=== PATIENT | male | born 1995 | race Caucasian/White ===

== ENCOUNTER 2020-01-26 09:26 | Emergency (ER) | payer BC, OTHER ==
[~2020-01-26] VITALS: Ht 172 cm; Wt 181.0 kg
[2020-01-26] MEDS ORDERED: ONDANSETRON 4 MG/2 ML (SDV) Z0FRAN ONE (09:43)
[2020-01-26] MEDS ORDERED: KETOROLAC 30 MG/ML VIAL ONE (09:43)
[2020-01-26] MEDS ORDERED: LACTATED RINGERS 1,000 ML IV ONE ×2 (09:43→09:54)
[2020-01-26] MEDS ORDERED: KETOROLAC 30 MG/ML VIAL IVP STA (09:54)
[2020-01-26] MEDS ORDERED: ONDANSETRON 4 MG/2 ML (SDV) Z0FRAN IVP ONE (10:00)
[2020-01-26 10:05] LABS: BASOPHILS % (AUTO) 1 % (0-10); EOSINOPHILS # (AUTO) 0.2 10^3/uL (0.0-0.3); EOSINOPHILS % (AUTO) 4 % (0-10); HEMATOCRIT 47 % (40-54); LYMPHOCYTES # (AUTO) 1.9 X 10^3 (1.0-4.0); LYMPHOCYTES % (AUTO) 32 % (12-44); MEAN CORPUSCULAR HEMOGLOBIN 27 PG (25-34); MEAN CORPUSCULAR HGB CONC 34 G/DL (32-36); MEAN CORPUSCULAR VOLUME 80 FL (80-99); MONOCYTES # (AUTO) 0.5 X 10^3 (0.0-1.0); MONOCYTES % (AUTO) 8 % (0-12); NEUTROPHILS # (AUTO) 3.4 X 10^3 (1.8-7.8); NEUTROPHILS % (AUTO) 57 % (42-75); PLATELET COUNT 224 10^3/uL (130-400); RED CELL DISTRIBUTION WIDTH 13.4 % (10.0-14.5); WHITE BLOOD COUNT 5.9 10^3/uL (4.3-11.0)
[2020-01-26 10:10] LABS: ALBUMIN 4.3 GM/DL (3.2-4.5); CHLORIDE 107 MMOL/L (98-107); POTASSIUM 4.3 MMOL/L (3.6-5.0); SODIUM 140 MMOL/L (135-145)
--- NOTE | 2020-01-26 10:11 | ED General ---
General Chief Complaint: Fever-Adult/Adol Stated Complaint: FEVER/SOA Nursing Triage Note: PATIENT ARRIVED VIA AMB TO ROOM 10 WITHOUT DIFFICULTY. COMPLAINS OF HEADACHE, BODYACHES, SOA, CHEST PAIN WITH DEEP BREATHS STARTING MODAY. PT STATES LAST NIGHT HE RAN A FEVER OF 101-102 BUT IT BROKE THIS AM. DENIES COUGH OR BEING AROUND A POSITVE COVID PT. PT HAS NOT BEEN STAYING AT HOME. Nursing Sepsis Screen: No Definite Risk Source of Information: Patient Exam Limitations: No Limitations History of Present Illness Date Seen by Provider: January 26, 2020 Time Seen by Provider: 09:46 Initial Comments Here with report of fevers, chills, body aches, nausea and diarrhea over the last few days with fever of 101 or higher last night. Has been taking ibuprofen for the discomfort. Did have travel to [place] last week and stayed over the night at a town south of there. No other sick contacts. Does admit to shortness of breath. He is worried about COVID-19. Denies cough, sore throat or runny nose. Timing/Duration: 2-3 Days Severity: Moderate Associated Systoms: No Cough; Fever/Chills, Headaches, Loss of Appetite, Malaise, Nausea/Vomiting, Shortness of Air, Weakness Allergies and Home Medications Allergies Coded Allergies: No Known Drug Allergies (Unverified , 01/26/20) Home Medications No Active Prescriptions or Reported Meds Patient Home Medication List Home Medication List Reviewed: Yes Review of Systems Review of Systems Constitutional: see HPI EENTM: see HPI Respiratory: see HPI; No cough; short of breath Cardiovascular: No chest pain, No edema, No palpitations Gastrointestinal: No abdominal pain; diarrhea, nausea Genitourinary: no symptoms reported Musculoskeletal: see HPI All Other Systems Reviewed Negative Unless Noted: Yes Past Pbsrfim-Kcbuzx-Bwwxqc Hx Past Med/Social Hx: Reviewed Nursing Past Med/Soc Hx Patient Social History Alcohol Use: Denies Use Recreational Drug Use: No Smoking Status: Never a Smoker Recent Foreign Travel: No Contact w/Someone Who Travel: No Recent Infectious Disease Expo: No Recent Hopitalizations: No Seasonal Allergies Seasonal Allergies: No Past Medical History Surgeries: No Respiratory: No Cardiac: No Neurological: No Genitourinary: No Gastrointestinal: No Musculoskeletal: No Endocrine: No HEENT: No Cancer: No Psychosocial: No Integumentary: No Family Medical History Reviewed Nursing Family Hx Physical Exam-Suspected Sepsis Physical Exam Vital Signs Vital Signs - First Documented 01/26/20 09:30 Temp 37.0 Pulse 80 Resp 16 B/P (MAP) 150/92 (111) Pulse Ox 99 O2 Delivery Room Air Capillary Refill : Less Than 3 Seconds Blood Pressure Mean: 111 Height, Weight, BMI Height: '" Weight: lbs. oz. kg; 61.00 BMI Method: General Appearance: No Apparent Distress, WD/WN HEENT: PERRL/EOMI, Pharynx Normal Neck: Non Tender, Supple Respiratory: Lungs Clear, Normal Breath Sounds Cardiovascular: Regular Rate, Rhythm, No Murmur Gastrointestinal: Non Tender, Soft Back: Normal Inspection, No CVA Tenderness, No Vertebral Tenderness Extremity: Normal Range of Motion, Non Tender Neurologic/Psychiatric: Alert, Oriented x3 Skin: normal color, warm/dry Focused Exam Lactate Level 01/26/20 09:45: Lactic Acid Level 1.45 Lactic Acid Level Laboratory Tests Test 01/26/20 09:45 Lactic Acid Level 1.45 MMOL/L (0.50-2.00) Progress/Results/Core Measures Suspected Sepsis Recent Fever Within 48 Hours: Yes Infection Criteria Present: Suspected New Infection New/Unexplained Altered Menta: No Sepsis Screen: No Definite Risk SIRS Temperature: Pulse: 80 Respiratory Rate: 16 Laboratory Tests 01/26/20 09:45: White Blood Count 5.9 Blood Pressure 150 /92 Mean: 111 01/26/20 09:45: Lactic Acid Level 1.45 Laboratory Tests 01/26/20 09:45: Creatinine 0.89, INR Comment 0.9, Platelet Count 224, Total Bilirubin 0.8 Results/Orders Lab Results Laboratory Tests Test 01/26/20 09:45 01/26/20 10:00 Range/Units White Blood Count 5.9 4.3-11.0 10^3/uL Red Blood Count 5.85 4.35-5.85 10^6/uL Hemoglobin 16.0 13.3-17.7 G/DL Hematocrit 47 40-54 % Mean Corpuscular Volume 80 80-99 FL Mean Corpuscular Hemoglobin 27 25-34 PG Mean Corpuscular Hemoglobin Concent 34 32-36 G/DL Red Cell Distribution Width 13.4 10.0-14.5 % Platelet Count 224 130-400 10^3/uL Mean Platelet Volume 11.0 H 7.4-10.4 FL Neutrophils (%) (Auto) 57 42-75 % Lymphocytes (%) (Auto) 32 12-44 % Monocytes (%) (Auto) 8 0-12 % Eosinophils (%) (Auto) 4 0-10 % Basophils (%) (Auto) 1 0-10 % Neutrophils # (Auto) 3.4 1.8-7.8 X 10^3 Lymphocytes # (Auto) 1.9 1.0-4.0 X 10^3 Monocytes # (Auto) 0.5 0.0-1.0 X 10^3 Eosinophils # (Auto) 0.2 0.0-0.3 10^3/uL Basophils # (Auto) 0.0 0.0-0.1 10^3/uL Erythrocyte Sedimentation Rate 12 0-15 MM/HR Prothrombin Time 12.3 12.2-14.7 SEC INR Comment 0.9 0.8-1.4 Activated Partial Thromboplast Time 30 24-35 SEC D-Dimer 0.28 0.00-0.49 UG/ML Sodium Level 140 135-145 MMOL/L Potassium Level 4.3 3.6-5.0 MMOL/L Chloride Level 107 98-107 MMOL/L Carbon Dioxide Level 21 21-32 MMOL/L Anion Gap 12 5-14 MMOL/L Blood Urea Nitrogen 13 7-18 MG/DL Creatinine 0.89 0.60-1.30 MG/DL Estimat Glomerular Filtration Rate > 60 BUN/Creatinine Ratio 15 Glucose Level 95 70-105 MG/DL Lactic Acid Level 1.45 0.50-2.00 MMOL/L Calcium Level 9.0 8.5-10.1 MG/DL Corrected Calcium 8.8 8.5-10.1 MG/DL Total Bilirubin 0.8 0.1-1.0 MG/DL Aspartate Amino Transf (AST/SGOT) 30 5-34 U/L Alanine Aminotransferase (ALT/SGPT) 40 0-55 U/L Alkaline Phosphatase 65 40-136 U/L Lactate Dehydrogenase 254 H 125-220 U/L C-Reactive Protein High Sensitivity 0.34 0.00-0.50 MG/DL Total Protein 7.5 6.4-8.2 GM/DL Albumin 4.3 3.2-4.5 GM/DL Procalcitonin 0.02 <0.10 NG/ML Urine Color YELLOW Urine Clarity CLEAR Urine pH 5.5 5-9 Urine Specific [place] 1.025 H 1.016-1.022 Urine Protein NEGATIVE NEGATIVE Urine Glucose (UA) NEGATIVE NEGATIVE Urine Ketones NEGATIVE NEGATIVE Urine Nitrite NEGATIVE NEGATIVE Urine Bilirubin NEGATIVE NEGATIVE Urine Urobilinogen 0.2 < = 1.0 MG/DL Urine Leukocyte Esterase NEGATIVE NEGATIVE Urine RBC (Auto) NEGATIVE NEGATIVE Urine RBC RARE /HPF Urine WBC RARE /HPF Urine Squamous Epithelial Cells 0-2 /HPF Urine Crystals NONE /LPF Urine Bacteria TRACE /HPF Urine Casts NONE /LPF Urine Mucus NEGATIVE /LPF Urine Culture Indicated CULTURE PENDING My Orders Orders - DEBBIE WANG MD Ketorolac Injection (Toradol Injection) (01/26/20 09:43) Lactated Ringers (Lr 1000 Ml Iv Solution (01/26/20 09:43) Ondansetron Injection (Zofran Injectio (01/26/20 09:43) Ketorolac Injection (Toradol Injection) (01/26/20 09:54) Cbc With Automated Diff (01/26/20 09:54) Comprehensive Metabolic Panel (01/26/20 09:54) Blood Culture (01/26/20 09:54) Sputum Culture (01/26/20 09:54) Urinalysis (01/26/20 09:54) Urine Culture (01/26/20 09:54) Protime With Inr (01/26/20 09:54) Partial Thromboplastin Time (01/26/20 09:54) Chest 1 View, Ap/Pa Only (01/26/20 09:54) Ed Iv/Invasive Line Start (01/26/20 09:54) Lactic Acid Analyzer (01/26/20 09:54) Lactated Ringers (Lr 1000 Ml Iv Solution (01/26/20 09:54) Ondansetron Injection (Zofran Injectio (01/26/20 10:00) Fibrin Degradation Products (01/26/20 09:54) Procalcitonin (Pct) (01/26/20 09:54) Hs C Reactive Protein (01/26/20 09:54) Erythrocyte Sedimentation Rate (01/26/20 09:54) LDH (01/26/20 09:54) Coronavirus Sars-Cov-2 So 2018 (01/26/20 09:54) Medications Given in ED Current Medications Medications Dose Ordered Sig/Narinder Route Start Time Stop Time Status Last Admin Dose Admin Lactated Ringer's 1,000 ml @ 0 mls/hr Q0M ONCE IV 01/26/20 09:54 01/26/20 09:58 DC 01/26/20 09:56 1,000 MLS/HR Ondansetron HCl 4 mg ONCE ONCE IVP 01/26/20 10:00 01/26/20 10:01 DC 01/26/20 09:56 4 MG Vital Signs/I&O 01/26/20 09:30 Temp 37.0 Pulse 80 Resp 16 B/P (MAP) 150/92 (111) Pulse Ox 99 O2 Delivery Room Air Capillary Refill : Less Than 3 Seconds Blood Pressure Mean: 111 Progress Note : Progress Note Seen and evaluated. Overall not concerning exam but story is concerning. Given the fact that he has traveled in endemic areas recently we will go ahead and evaluate for COVID-19. IV, labs, blood cultures and lactic acid, UA and COVID-19 screening initiated. LR 1 L bolus, Zofran 4 mg IV for nausea and Toradol 30 mg IV for bodyaches. Monitor patient. 1150: Labs and x-ray reviewed. No acute findings. COVID-19 lab results pending. Patient was given COVID instructions. No indication for admission. Discharged home with return precautions. Patient verbalize understanding instructions and agreement with plan. Diagnostic Imaging Diagonstic Imaging: Xray Plain Films/CT/US/NM/MRI: chest Comments [facility], [place] NAME: CEDRICK MENESES [facility] REC#: [id number] PT STATUS: REG ER : 1995 PHYSICIAN: DEBBIE WANG MD ADMIT DATE: 01/26/20/ER Draft Date of Exam:01/26/20 CHEST 1 VIEW, AP/PA ONLY INDICATION: Fever, diarrhea and nausea for four days. COMPARISON: No prior studies are available for comparison. TIME OF EXAM: 10:22 a.m. FINDINGS: Heart size is normal and lungs are clear. No infiltrates are seen. There is no effusion or pneumothorax. IMPRESSION: No acute cardiopulmonary process is detected. Dictated on workstation # [id number] Dict: 01/26/20 1038 Trans: 01/26/20 1040 [facility] [id number] Interpreted by: OKSANA QUINTERO MD Electronically signed by: Departure Impression Primary Impression: Fever Qualified Codes: R50.9 - Fever, unspecified Additional Impressions: Diarrhea Qualified Codes: R19.7 - Diarrhea, unspecified COVID-19 evaluation Disposition: 01 HOME, SELF-CARE Condition: Improved Departure-Patient Inst. Decision time for Depature: 11:51 Referrals: [facility] [place] Patient Instructions: Coronavirus Disease 2019 (COVID-19) (DC), Diarrhea in Adolescents and Adults, Fever, Adult (DC) Add. Discharge Instructions: All discharge instructions reviewed with patient and/or family. Voiced understanding. You are being evaluated for COVID-19. You need to remain quarantined until results noted. If you're positive then the health department will give details for length of quarantine. If your negative, you should remain self isolated until 3 days past your last fever without fever reducing medicines. Drink plenty of fluids. You may take Tylenol/acetaminophen 1000 mg every 8 hours as needed for fever or pain. You may take ibuprofen 600 mg every 8 hours as needed for fever or pain. Get plenty of rest. Return for worse pain, fever, vomiting, weakness, breathing problems or other concerns as needed. Scripts No Active Prescriptions or Reported Meds DEBBIE WANG MD January 26, 2020 10:11
[2020-01-26 10:12] LABS: GLUCOSE 95 MG/DL (70-105)
[2020-01-26 10:13] LABS: TOTAL PROTEIN 7.5 GM/DL (6.4-8.2)
[2020-01-26 10:14] LABS: BILIRUBIN,TOTAL 0.8 MG/DL (0.1-1.0); CARBON DIOXIDE 21 MMOL/L (21-32)
[2020-01-26 10:16] LABS: ALKALINE PHOSPHATASE 65 U/L (40-136); CREATININE SERUM 0.89 MG/DL (0.60-1.30); FIBRIN DEGRADATION PRODUCTS 0.28 UG/ML (0.00-0.49); GFR ESTIMATED > 60; INR 0.9 (0.8-1.4); PROTHROMBIN TIME PATIENT 12.3 SEC (12.2-14.7)
[2020-01-26 10:17] LABS: BUN/CREATININE RATIO 15
[2020-01-26 10:19] LABS: ALANINE AMINOTRANSFERASE 40 U/L (0-55)
--- NOTE | 2020-01-26 10:40 | Diagnostic Imaging Report ---
INDICATION: Fever, diarrhea and nausea for four days. COMPARISON: No prior studies are available for comparison. TIME OF EXAM: 10:22 a.m. FINDINGS: Heart size is normal and lungs are clear. No infiltrates are seen. There is no effusion or pneumothorax. IMPRESSION: No acute cardiopulmonary process is detected. Dictated by: Dictated on workstation # [id number]
--- NOTE | 2020-01-26 10:40 | NUR ---
PT REMINDED WE NEED A URINE SAMPLE. WATER TAKEN TO HIM.
[2020-01-26 10:57] LABS: BILIRUBIN,URINE NEGATIVE (NEGATIVE); CLARITY,URINE CLEAR; COLOR,URINE YELLOW; GLUCOSE, URINE (UA) NEGATIVE (NEGATIVE); KETONES,URINE NEGATIVE (NEGATIVE); LEUKOCYTE ESTERASE ,URINE NEGATIVE (NEGATIVE); NITRITE,URINE NEGATIVE (NEGATIVE); PH,URINE 5.5 (5-9); PROTEIN,URINE NEGATIVE (NEGATIVE)
[2020-01-26 11:04] LABS: ERYTHROCYTE SEDIMENTATION RATE 12 MM/HR (0-15)
[2020-01-26 11:12] LABS: BACTERIA,URINE TRACE /HPF; RBC,URINE RARE /HPF; SQUAMOUS EPITHELIAL CELL,UR 0-2 /HPF; WBC,URINE RARE /HPF
--- NOTE | 2020-01-26 11:50 | NUR ---
IN TALKING TO PT AT THIS TIME.
[2020-01-26 12:09] VITALS: BP 148/88
== END 2020-01-26 12:09 | disposition home or self-care (01) ==
LOC: ER 09:28
DX: R50.9 Fever, unspecified (principal); R19.7 Diarrhea, unspecified; Z11.59 Encounter for screening for other viral diseases
CPT/HCPCS: 36415; 71045; 80053; 81000; 83605; 83615; 84145; 85025; 85379; 85610; 85652; 85730; 86141; 87040; 87088; 87635

== ENCOUNTER 2020-07-22 12:04 | Emergency (ER) | payer BC ==
[~2020-07-22] VITALS: Ht 195.6 cm; Wt 181.8 kg
[2020-07-22 13:05] LABS: BASOPHILS % (AUTO) 1 % (0-10); EOSINOPHILS # (AUTO) 0.2 10^3/uL (0.0-0.3); EOSINOPHILS % (AUTO) 2 % (0-10); HEMATOCRIT 48 % (40-54); HEMOGLOBIN 15.6 g/dL (13.3-17.7); LYMPHOCYTES # (AUTO) 1.6 10^3/uL (1.0-4.0); LYMPHOCYTES % (AUTO) 24 % (12-44); MEAN CORPUSCULAR HEMOGLOBIN 27 pg (25-34); MEAN CORPUSCULAR HGB CONC 33 g/dL (32-36); MEAN CORPUSCULAR VOLUME 83 fL (80-99); MEAN PLATELET VOLUME 10.7 fL (9.0-12.2); MONOCYTES # (AUTO) 0.4 10^3/uL (0.0-1.0); MONOCYTES % (AUTO) 6 % (0-12); NEUTROPHILS # (AUTO) 4.5 10^3/uL (1.8-7.8); NEUTROPHILS % (AUTO) 67 % (42-75); PLATELET COUNT 224 10^3/uL (130-400); WHITE BLOOD COUNT 6.7 10^3/uL (4.3-11.0)
[2020-07-22 13:17] LABS: ALBUMIN 4.4 GM/DL (3.2-4.5); CHLORIDE 105 MMOL/L (98-107); POTASSIUM 4.1 MMOL/L (3.6-5.0); SODIUM 140 MMOL/L (135-145)
[2020-07-22 13:19] LABS: CALCIUM 9.5 MG/DL (8.5-10.1)
[2020-07-22 13:20] LABS: GLUCOSE 95 MG/DL (70-105); TOTAL PROTEIN 7.4 GM/DL (6.4-8.2)
[2020-07-22 13:21] LABS: CARBON DIOXIDE 22 MMOL/L (21-32)
[2020-07-22 13:22] LABS: BILIRUBIN,TOTAL 0.9 MG/DL (0.1-1.0)
[2020-07-22 13:24] LABS: ALKALINE PHOSPHATASE 67 U/L (40-136); CREATININE SERUM 0.87 MG/DL (0.60-1.30); GFR ESTIMATED > 60
[2020-07-22 13:25] LABS: BUN/CREATININE RATIO 17
[2020-07-22 13:26] LABS: SALICYLATE < 5.0 MG/DL (5.0-20.0)
[2020-07-22 13:27] LABS: ACETAMINOPHEN < 10 UG/ML (10-30); ALANINE AMINOTRANSFERASE 38 U/L (0-55)
[2020-07-22 14:55] LABS: AMPHETAMINE SCREEN, URINE NEGATIVE (NEGATIVE); BARBITURATE SCREEN URINE NEGATIVE (NEGATIVE); BENZODIAZEPINES SCREEN URINE NEGATIVE (NEGATIVE); CANNABINOID SCREEN, URINE NEGATIVE (NEGATIVE); COCAINE SCREEN URINE NEGATIVE (NEGATIVE); METHADONE STAT NEGATIVE (NEGATIVE); METHAMPHETAMINE SCREEN URINE S NEGATIVE (NEGATIVE); OPIATE SCREEN URINE NEGATIVE (NEGATIVE); OXYCODONE STAT NEGATIVE (NEGATIVE); PROPOXYPHENE STAT NEGATIVE (NEGATIVE); TRICYCLIC ANTIDEPRESSANTS SCRE NEGATIVE (NEGATIVE)
[2020-07-22 15:01] LABS: BILIRUBIN,URINE NEGATIVE (NEGATIVE); CLARITY,URINE CLEAR; COLOR,URINE YELLOW; GLUCOSE, URINE (UA) NEGATIVE (NEGATIVE); KETONES,URINE NEGATIVE (NEGATIVE); LEUKOCYTE ESTERASE ,URINE NEGATIVE (NEGATIVE); NITRITE,URINE NEGATIVE (NEGATIVE); PROTEIN,URINE TRACE (NEGATIVE)
[2020-07-22 15:10] LABS: BACTERIA,URINE TRACE /HPF; WBC,URINE RARE /HPF
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
[2020-07-22 17:18] VITALS: BP 165/96
== END 2020-07-22 17:17 | disposition home or self-care (01) ==
LOC: ER 12:04
DX: R45.851 Suicidal ideations (principal)
CPT/HCPCS: 80053; 80306; 81000; 84484; 85025; 99283; G0480 ×3; 36415; 80320; 80329

== ENCOUNTER 2023-04-29 20:28 | Emergency (ER) | payer BC ==
[~2023-04-29] VITALS: Ht 195.5 cm; Wt 204.1 kg
[2023-04-29] MEDS ORDERED: KETOROLAC INJ 30 MG/ML VIAL IVP ONE (20:45)
--- NOTE | 2023-04-29 20:49 | ED Chest Pain ---
General Chief Complaint: Chest Pain Stated Complaint: CHEST PAIN/RAPID HEART RATE Nursing Triage Note: CHEST PAIN STARTED AROUND 1730 WENT AWAY THEN BACK AT 1930. WALKING AT TIME OF PAIN WHILE AT WORK. ALSO SOB. Source: patient Exam Limitations: no limitations History of Present Illness Date Seen by Provider: Apr 29, 2023 Time Seen by Provider: 20:47 Initial Comments Patient is a 27-year-old male with a history of bipolar who presents the ED for chest pain. Chest pain started around 5:30 PM. Substernal sharp stabbing chest pain no radiation. Associated shortness of breath. Pain improved and started developing similar type pain around 7:30 PM. Rates pain 6 out of 10. Associate shortness of breath denies cough. Denies nausea, vomiting, diarrhea. Denies history of similar symptoms. No recent travels or surgeries. No pain with eating. He states he was walking around when the pain started. Noted his heart rate being fast. Denies fever, chills, nausea vomit, diarrhea, abdominal pain, dysuria, drug use or alcohol use. Denies excessive caffeine use or energy drinks. Allergies and Home Medications Allergies Coded Allergies: No Known Drug Allergies (Unverified , 01/26/20) Patient Home Medication List Home Medication List Reviewed: Yes No Active Prescriptions or Reported Meds Review of Systems Review of Systems Constitutional: No chills, No diaphoresis, No malaise, No weakness EENTM: No Double Vision, No Eye Pain Respiratory: Denies Cough; Shortness of Air Cardiovascular: Chest Pain Gastrointestinal: Denies Abdomen Distended, Denies Abdominal Pain, Denies Diarrhea, Denies Nausea, Denies Vomiting Genitourinary: Denies Burning, Denies Discharge Musculoskeletal: No back pain Skin: No change in color, No change in hair/nails All Other Systems Reviewed Negative Unless Noted: Yes Past [id number]-Ahspol-Jkdfhj Hx Patient Social History Tobacco Use?: No Use of E-Cig and/or Vaping dev: No Substance use?: No Alcohol Use?: Yes Alcohol type: Hard Liquor Pt feels they are or have been: No Immunizations Up To Date Influenza Vaccine Up-to-Date: Yes; Up-to-Date First/Initial COVID19 Vaccinat: "2 SHOTS" Seasonal Allergies Seasonal Allergies: No Past Medical History Surgery/Hospitalization HX: BIPOLAR, NIDDM NO SURGERIES Surgeries: No Respiratory: No Cardiac: No Neurological: No Genitourinary: No Gastrointestinal: No Musculoskeletal: No Endocrine: No HEENT: No Cancer: No Psychosocial: No Integumentary: No Physical Exam Vital Signs Vital Signs - First Documented 04/29/23 20:30 Temp 37.2 Pulse 113 Resp 18 B/P (MAP) 149/95 (113) Pulse Ox 97 O2 Delivery Room Air Capillary Refill : Less Than 3 Seconds Height, Weight, BMI Height: '" Weight: lbs. oz. kg; 53.00 BMI Method: General Appearance: No Apparent Distress, WD/WN HEENT: PERRL/EOMI, TMs Normal, Normal ENT Inspection, Pharynx Normal Neck: Full Range of Motion, Normal Inspection, Non Tender, Supple Respiratory: Chest Non Tender, Lungs Clear, Normal Breath Sounds, No Accessory Muscle Use, No Respiratory Distress Cardiovascular: No Edema, No Gallop, No JVD, No Murmur, Tachycardia Gastrointestinal: Normal Bowel Sounds, No Organomegaly, No Pulsatile Mass, Non Tender Rectal: Normal Exam Extremity: Normal Capillary Refill, Normal Inspection, Normal Range of Motion, Non Tender Neurologic/Psychiatric: Alert, Oriented x3, No Motor/Sensory Deficits, Normal 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, 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 as Tested Skin: Normal Color, Warm/Dry Progress/Results/Core Measures Results/Orders Lab Results Laboratory Tests Test 04/29/23 20:35 Range/Units White Blood Count 8.5 4.3-11.0 10^3/uL Red Blood Count 5.76 H 4.30-5.52 10^6/uL Hemoglobin 15.7 13.3-17.7 g/dL Hematocrit 48 40-54 % Mean Corpuscular Volume 83 80-99 fL Mean Corpuscular Hemoglobin 27 25-34 pg Mean Corpuscular Hemoglobin Concent 33 32-36 g/dL Red Cell Distribution Width 12.7 10.0-14.5 % Platelet Count 308 130-400 10^3/uL Mean Platelet Volume 11.0 9.0-12.2 fL Immature Granulocyte % (Auto) 0 % Neutrophils (%) (Auto) 67 42-75 % Lymphocytes (%) (Auto) 22 12-44 % Monocytes (%) (Auto) 8 0-12 % Eosinophils (%) (Auto) 3 0-10 % Basophils (%) (Auto) 1 0-10 % Neutrophils # (Auto) 5.6 1.8-7.8 10^3/uL Lymphocytes # (Auto) 1.9 1.0-4.0 10^3/uL Monocytes # (Auto) 0.7 0.0-1.0 10^3/uL Eosinophils # (Auto) 0.2 0.0-0.3 10^3/uL Basophils # (Auto) 0.1 0.0-0.1 10^3/uL Immature Granulocyte # (Auto) 0.0 0.0-0.1 10^3/uL Prothrombin Time 12.0 L 12.2-14.7 SEC INR Comment 0.9 0.8-1.4 Activated Partial Thromboplast Time 30 24-35 SEC D-Dimer 0.32 0.00-0.49 UG/ML Sodium Level 141 135-145 MMOL/L Potassium Level 4.1 3.6-5.0 MMOL/L Chloride Level 107 98-107 MMOL/L Carbon Dioxide Level 24 21-32 MMOL/L Anion Gap 10 5-14 MMOL/L Blood Urea Nitrogen 14 7-18 MG/DL Creatinine 1.19 0.60-1.30 MG/DL Estimat Glomerular Filtration Rate 86 BUN/Creatinine Ratio 12 Glucose Level 100 70-105 MG/DL Calcium Level 9.4 8.5-10.1 MG/DL Corrected Calcium 9.1 8.5-10.1 MG/DL Magnesium Level 2.0 1.6-2.4 MG/DL Total Bilirubin 0.6 0.1-1.0 MG/DL Aspartate Amino Transf (AST/SGOT) 33 5-34 U/L Alanine Aminotransferase (ALT/SGPT) 51 0-55 U/L Alkaline Phosphatase 65 40-136 U/L Myoglobin 60.5 10.0-92.0 NG/ML Troponin I < 0.028 <0.028 NG/ML Total Protein 7.2 6.4-8.2 GM/DL Albumin 4.4 3.2-4.5 GM/DL Lipase 26 8-78 U/L My Orders Orders - SHARI MICHAEL PA Cbc With Automated Diff (04/29/23 20:45) Magnesium (04/29/23 20:45) Chest 1 View, Ap/Pa Only (04/29/23 20:45) Comprehensive Metabolic Panel (04/29/23 20:45) Myoglobin Serum (04/29/23 20:45) Protime With Inr (04/29/23 20:45) Partial Thromboplastin Time (04/29/23 20:45) O2 (04/29/23 20:45) Monitor-Rhythm Ecg Trace Only (04/29/23 20:45) Ed Iv/Invasive Line Start (04/29/23 20:45) Lipase (04/29/23 20:45) Fibrin Degradation Products (04/29/23 20:45) Troponin I [place] (04/29/23 20:45) Ketorolac Injection (Ketorolac Injection (04/29/23 20:45) Medications Given in ED Vital Signs/I&O 04/29/23 04/29/23 20:30 22:34 Temp 37.2 37.2 Pulse 113 113 Resp 18 18 B/P (MAP) 149/95 (113) 149/95 Pulse Ox 97 97 O2 Delivery Room Air Room Air Blood Pressure Mean: 113 Comment Sinus tachycardia, Q waves in V3 to V4, 105 bpm, QRS duration 99 MS, QTc 375 MS Departure Communication (PCP) Reviewed previous ER visits, H&P, lab testing. Differential diagnosis, ACS, pericarditis, pneumonia, pneumothorax, anxiety, PE. Chest pain started around 5:30 PM. Substernal sharp with no radiation. Patient was not eating at the time. associate shortness of breath. Pain improved then restarted around 730 pm. Rates pain 6 out of 10. No recent travels or surgeries. Denies of any lower extremity swelling. Due to patient's current complaint and presentation cardiac work-up was initiated. EKG was obtained. Sinus tach 104 bpm. No evidence of ST elevation or depression or arrhythmia. Patient without any specific chest wall tenderness. No pain with eating. No upper abdominal tenderness suggesting pancreatitis, gastritis. Few cardiac risk factors with family cardiac history history, obese. Denies history of hypertension, diabetes, high cholesterol, smoking. No recent URI. No meningeal signs. CBC, CMP grossly unremarkable. Patient troponin and D-dimer negative. Chest x-ray unremarkable for pneumonia,, pneumothorax, mediastinal widening. No recent travels, surgeries. Patient Is not hypoxic but is tachycardic. Low heart score. patient did receive Toradol with some improvement in pain. No evidence suggesting pericarditis, myocarditis, pneumonia. Due to reassuring lab work, EKG and presentation and low cardiac risk factors patient does not necessarily need inpatient at this time for cardiac work. Recommend outpatient follow-up with cardiology for further evaluation. If increasing pain, shortness of breath, vomiting, fever to return back to ED. Patient is currently pain-free after Toradol. Other etiology pleurisy, costochondritis however does not have any specific tenderness on palpation which could help with anti-inflammatories. Patient agrees with plan of action. Return precaution were discussed with patient Impression Primary Impression: Chest pain Disposition: HOME, SELF-CARE Condition: Stable Departure-Patient Inst. Decision time for Depature: 22:26 Referrals: [facility] MEDEL MD NO,LOCAL PHYSICIAN (PCP) Primary Care Physician Patient Instructions: Chest Pain (DC) Add. Discharge Instructions: Follow-up with your primary care physician for further evaluation. If any worsening symptoms return back to ED. If pain with eating or waking up with pain may be consider Tums, Mylanta or Pepcid. If any worsening pain short of breath to return back to ED. All discharge instructions reviewed with patient and/or family. Voiced understanding. Scripts No Active Prescriptions or Reported Meds SHARI MICHAEL Apr 29, 2023 20:49
[2023-04-29 20:56] LABS: BASOPHILS # (AUTO) 0.1 10^3/uL (0.0-0.1); BASOPHILS % (AUTO) 1 % (0-10); EOSINOPHILS # (AUTO) 0.2 10^3/uL (0.0-0.3); EOSINOPHILS % (AUTO) 3 % (0-10); HEMATOCRIT 48 % (40-54); HEMOGLOBIN 15.7 g/dL (13.3-17.7); LYMPHOCYTES # (AUTO) 1.9 10^3/uL (1.0-4.0); LYMPHOCYTES % (AUTO) 22 % (12-44); MEAN CORPUSCULAR HEMOGLOBIN 27 pg (25-34); MEAN CORPUSCULAR HGB CONC 33 g/dL (32-36); MEAN CORPUSCULAR VOLUME 83 fL (80-99); MONOCYTES # (AUTO) 0.7 10^3/uL (0.0-1.0); MONOCYTES % (AUTO) 8 % (0-12); NEUTROPHILS # (AUTO) 5.6 10^3/uL (1.8-7.8); NEUTROPHILS % (AUTO) 67 % (42-75); PLATELET COUNT 308 10^3/uL (130-400); WHITE BLOOD COUNT 8.5 10^3/uL (4.3-11.0)
[2023-04-29 21:00] LABS: ALBUMIN 4.4 GM/DL (3.2-4.5)
[2023-04-29 21:01] LABS: CHLORIDE 107 MMOL/L (98-107); INR 0.9 (0.8-1.4); POTASSIUM 4.1 MMOL/L (3.6-5.0); SODIUM 141 MMOL/L (135-145)
[2023-04-29 21:02] LABS: CALCIUM 9.4 MG/DL (8.5-10.1)
[2023-04-29 21:03] LABS: GLUCOSE 100 MG/DL (70-105); TOTAL PROTEIN 7.2 GM/DL (6.4-8.2)
[2023-04-29 21:04] LABS: CARBON DIOXIDE 24 MMOL/L (21-32); FIBRIN DEGRADATION PRODUCTS 0.32 UG/ML (0.00-0.49)
[2023-04-29 21:05] LABS: BILIRUBIN,TOTAL 0.6 MG/DL (0.1-1.0)
[2023-04-29 21:06] LABS: ALKALINE PHOSPHATASE 65 U/L (40-136)
[2023-04-29 21:07] LABS: CREATININE SERUM 1.19 MG/DL (0.60-1.30); GFR ESTIMATED 86
[2023-04-29 21:08] LABS: BUN/CREATININE RATIO 12
[2023-04-29 21:10] LABS: ALANINE AMINOTRANSFERASE 51 U/L (0-55); LIPASE 26 U/L (8-78)
[2023-04-29 22:34] VITALS: BP 149/95
--- NOTE | 2023-04-30 08:14 | Diagnostic Imaging Report ---
EXAMINATION: Chest 1 view HISTORY: Chest pain COMPARISON: 01/26/2020 FINDINGS: The lungs are clear without edema or pneumonia. No pleural effusion or pneumothorax. Heart size is normal. IMPRESSION: 1. Clear lungs. Dictated by: Dictated on workstation # [id number]
== END 2023-04-29 22:35 | disposition home or self-care (01) ==
LOC: EDUNIT# 20:28 → ER 20:31
DX: R07.2 Precordial pain (principal); E66.9 Obesity, unspecified; R00.0 Tachycardia, unspecified; Z68.43 Body mass index [BMI] 50.0-59.9, adult
CPT/HCPCS: 36415; 71045; 80053; 83690; 83735; 83874; 84484; 85025; 85379; 85610; 85730; 93005; 93041